=== PATIENT | male | born 1965 | race American Indian/Alaskan Native ===

== ENCOUNTER 2019-04-25 10:37 | Outpatient (CLI) | payer BC ==
--- NOTE | 2019-04-25 11:33 | XRay Report ---
LUMBAR SPINE HISTORY: Pain in the back with radiation. COMPARISON: None. TECHNIQUE: 3 view(s) of the lumbar spine obtained. FINDINGS: Vertebrae: Normal alignment. Mild dextroscoliosis centered at L3-4. No fracture or subluxation. Disc Spaces:Degenerative disc disease with disc space narrowing and osteophytes at L3-4, L4-5 and T12 -L1. Facet Joints:No significant abnormality. Additional findings: A 1 cm opacity adjacent to the left L3 transverse process. IMPRESSION: 1. Scoliosis and moderate degenerative disc disease from L3-4 through L4-5. 2. If there is any consideration of urinary calculi, consider CT abdomen and pelvis without contrast to evaluate the opacity adjacent to the left L3 transverse process. Signer Name: Arash Edward MD Signed: 04/25/2019 11:28 AM Workstation Name: [id number]
== END 2019-04-25 10:38 | disposition home or self-care (01) ==
LOC: SPVIMAG 10:37
PROVIDERS: ATTEND Internal Medicine
DX: M51.36 Other intervertebral disc degeneration, lumbar region (principal); M41.86 Other forms of scoliosis, lumbar region
CPT/HCPCS: 72100